=== PATIENT | male | born 1980 | race Caucasian/White ===

== ENCOUNTER 2022-08-20 10:01 | Day surgery (SDC) | payer OTHER ==
[~2022-08-20 10:01] MED LIST: SODIUM CHLORIDE 0.9% 1,000 ML IV ONE; SODIUM CHLORIDE 0.9% 1,000 ML ONE
[2022-08-20] MEDS ORDERED: PROPOFOL 1% 20 ML VIAL IVP ONE (10:02)
[2022-08-20] MEDS ORDERED: LIDOCAINE/PF 2% 5 ML VIAL IM ONE (10:02)
[2022-08-20] MEDS ORDERED: LORA-999 PO (10:52)
[2022-08-20] MEDS ORDERED: LEVE500T20 PO (10:52)
== END 2022-08-20 13:05 ==
LOC: SURGERY 10:01
PROVIDERS: ATTEND Internal Medicine Gastroenterology
DX: I85.00 Esophageal varices without bleeding (principal); K31.84 Gastroparesis; K31.9 Disease of stomach and duodenum, unspecified; K29.50 Unspecified chronic gastritis without bleeding; I10 Essential (primary) hypertension; G43.909 Migraine, unspecified, not intractable, without status migrainosus; D64.9 Anemia, unspecified; Z86.73 Personal history of transient ischemic attack (TIA), and cerebral infarction without residual deficits; Z98.890 Other specified postprocedural states; Z79.899 Other long term (current) drug therapy
CPT/HCPCS: 43239; 88305; 88312; 88313; C1769; J2704; J3490; J7030